=== PATIENT | male | born 1950 | race Asian ===

== ENCOUNTER 2024-06-30 19:26 | Inpatient (IN) | payer OTHER ==
[~2024-06-30] VITALS: Ht 165.1 cm; Wt 51.0 kg
[2024-06-30] MEDS ORDERED: 0.9% SODIUM CHLORIDE 10 ML SYRINGE IVP PRN (20:30)
[2024-06-30 20:46] LABS: HEMATOCRIT 23.8 % (41-53); HEMOGLOBIN 7.7 g/dL (13.5-17.5); MEAN CORPUSCULAR HEMOGLOBIN 31.3 pg (26.0-34.0); MEAN CORPUSCULAR HGB CONC 32.4 G/dL (31.0-37.0); MEAN CORPUSCULAR VOLUME 96 fL (80-100); PLATELET COUNT (AUTO) 248 K/uL (150-450); RED BLOOD CELL COUNT(AUTO) 2.47 MIL/uL (4.50-5.90); RED CELL DISTRIBUTION WIDTH 16.2 % (11.5-14.5); WHITE BLOOD COUNT (AUTO) 8.3 K/uL (4.5-11.0)
[2024-06-30 20:53] LABS: APPEARANCE,URINE CLEAR (CLEAR); BILIRUBIN,URINE NEGATIVE (NEGATIVE); COLOR,URINE LIGHT YELLOW (YELLOW); GLUCOSE, URINE (UA) 300-500 mg/dL (NEGATIVE); KETONES,URINE NEGATIVE (NEGATIVE); LEUKOCYTE ESTERASE ,URINE NEGATIVE (NEGATIVE); NITRATE,URINE NEGATIVE (NEGATIVE); OCCULT BLOOD,URINE MODERATE (NEGATIVE); PROTEIN,URINE >600,SEE CONFIRM mg/dL (NEGATIVE); SPECIFIC GRAVITIY, URINE 1.014 (1.003-1.030); UROBILINOGEN,URINE <=1.0 mg/dL (<=1.0)
[2024-06-30 20:58] LABS: PROTHROMBIN TIME 10.7 SEC (9.4-11.6)
[2024-06-30] MEDS ORDERED: FUROSEMIDE 40 MG/4 ML VIAL ONE (21:00)
[2024-06-30] MEDS: SODIUM CHLORIDE 0.9% 1,350 ML IV ONE (21:01)
[2024-06-30] MEDS: CefTRIAXone 1 GM/DEXTROSE 50 ML IV ONE (21:01)
[2024-06-30 21:05] LABS: ALANINE AMINOTRANSFERASE 29 U/L (12-78); ALBUMIN 3.7 g/dL (3.4-5.0); ALKALINE PHOSPHATASE 81 U/L (46-116); ANION GAP 15 mmol/L (8-16); ASPARTATE AMINOTRANSFERASE 21 U/L (15-37); BILIRUBIN,TOTAL 0.5 mg/dL (0.1-1.0); CALCIUM, TOTAL 8.9 mg/dL (8.8-10.5); CARBON DIOXIDE 18 mmol/L (22-29); CHLORIDE 102 mmol/L (98-107); CREATININE 9.81 mg/dL (0.60-1.30); GLOMERULAR FILTR. RATE CALC 5 mL/min (>60); GLUCOSE,RANDOM 229 mg/dL (70-110); LIPASE 132 U/L (16-77); SODIUM SERUM 135 mmol/L (136-145); TOTAL PROTEIN, SERUM 7.9 g/dL (6.4-8.2)
[2024-06-30 21:07] LABS: POTASSIUM 6.9 mmol/L (3.5-5.1); TROPONIN I-HIGH SENSITIVITY 117 ng/L (<76); UREA NITROGEN, BLOOD 112 mg/dL (7-18)
[2024-06-30 21:08] LABS: BACTERIA,URINE Few /HPF (None Seen); SQUAMOUS EPITHELIAL CELL,UR Few /LPF (None Seen); WBC,URINE 0-2 /HPF (0-5)
[2024-06-30 21:11] LABS: SULFOSALICYLIC ACID,URINE 1+ (Negative)
[2024-06-30 21:15] LABS: BAND NEUTROPHILS % (MANUAL) 2 % (0-5); BASOPHILS % (MANUAL) 1 % (0-2); LYMPHOCYTES % (MANUAL) 6 % (22-44); MONOCYTES % (MANUAL) 7 % (2-9); RBC MORPHOLOGY COMMENT ABNORMAL RBC MORPH; SEGMENTED NEUTROPHILS % 84 % (40-70); TOTAL CELLS COUNTED 100
[2024-06-30] MEDS ORDERED: ONDANSETRON HCL 4 MG/2 ML VIAL IVP PRN (21:30)
[2024-06-30] MEDS ORDERED: NITROGLYCERIN 0.4 MG SUBLINGUAL TABLET #25 SL PRN (21:30)
[2024-06-30] MEDS ORDERED: MIDAZOLAM HCL 2 MG/2 ML VIAL IVP PRN (21:45)
[2024-06-30 21:46] LABS: COVID AG,FIA SOURCE NASAL SWAB
[2024-06-30] MEDS: SODIUM BICARBONATE [ADULT] 8.4% 50 MEQ/50 ML SYRINGE IVP ONE (21:46)
[2024-06-30] MEDS: DEXTROSE 50%-WATER 25 GM/50 ML SYRINGE IVP ONE (21:49)
[2024-06-30] MEDS ORDERED: PROPOFOL 1000 MG/ISO-OSM 100 ML ONE (21:50)
[2024-06-30] MEDS: CALCIUM GLUCONATE 100 MG/ML 10 ML IVP ONE (21:50)
[2024-06-30] MEDS: INSULIN REGULAR, HUMAN 100 UNITS/ML IVP ONE (21:50)
[2024-06-30] MEDS: FUROSEMIDE 40 MG/4 ML VIAL IVP ONE ×2 (21:52→22:21)
[2024-06-30 22:02] LABS: SARS-COV2 (COVID) ANTIGEN,FIA Negative (Negative)
[2024-06-30 22:05] LABS: INFLUENZA TYPE B NEGATIVE FOR TYPE B (NEGATIVE)
[2024-06-30 22:06] VITALS: PULSE 101; RESP 20; O2SAT 100
[2024-06-30 22:06] LABS: INFLUENZA TYPE A POSITIVE FOR TYPE A (NEGATIVE)
[2024-06-30 22:07] LABS: ABG BASE EXCESS -12.6 mmol/L (-2.0-3.0); ABG CARBOXYHEMOGLOBIN 0.3 % (0.5-1.5); ABG HCO3 14.9 mmol/L (21.0-28.0); ABG METHEMOGLOBIN 0.4 % (0.0-1.5); ABG OXYGEN CONTENT 11.6 mL/dL (15.0-23.0); ABG OXYGEN SATURATION 99.6 % (94.0-98.0); ABG OXYHEMOGLOBIN 98.9 % (94.0-98.0); ABG PCO2 52 mmHg (32.0-48.0); ABG TOTAL HEMOGLOBIN 7.7 G/dL (13.5-17.5); SOURCE, BLOOD GAS ARTERIAL
[2024-06-30] MEDS: PROPOFOL 1000 MG/ISO-OSM 100 ML IV PRN (22:10)
[2024-06-30 22:16] LABS: ABG PH 7.125 (7.350-7.450)
[2024-06-30 22:17] LABS: ALLEN TEST, BLOOD GAS Positive; O2 DEVICE,BLOOD GAS VENTILATOR (ROOM AIR); PEEP,BG 5 cm H2O; PO2, ARTERIAL BG 312.5 mmHg (83.0-108.0); SITE, BLOOD GAS LFT RADIAL; SPONTANEOUS VT, BG 406 ml; VT, ABG 400 ml
[2024-06-30] MEDS: SODIUM ZIRCONIUM CYCLOSILICATE 5 GM POWDER PACKET PO ONE (22:21)
[2024-06-30] MEDS: CHLORHEXIDINE GLUCONATE 2% TOWELETTE [2'S/6'S] TP SCH (22:55)
[2024-06-30] MEDS: HEPARIN SODIUM,PORCINE 5,000 UNITS/ML VIAL SQ SCH (23:15)
[2024-06-30] MEDS: NITROGLYCERIN 2% (1 GM=INCH) OINTMENT PACKET TP SCH (23:54)
[2024-07-01] VITALS (22 sets, daily range): BP systolic 91–160; BP diastolic 42–72; PULSE 66–97; RESP 18–27; TEMP 95–100.7; O2SAT 90–100
[2024-07-01] MEDS: ETOMIDATE 2 MG/ML 10 ML VIAL IVP ONE
[2024-07-01] MEDS: ROCURONIUM BROMIDE 10 MG/ML 5 ML VIAL IVP ONE (00:01)
[2024-07-01 01:45] LABS: TROPONIN I-HIGH SENSITIVITY 146 ng/L (<76)
[2024-07-01 04:34] LABS: BASOPHILS % (AUTO) 0.4 % (0.0-2.0); EOSINOPHILS % (AUTO) 0 % (1.0-6.0); HEMATOCRIT 23.7 % (41-53); LYMPHOCYTES # (AUTO) 0.2 K/uL (1.0-4.8); LYMPHOCYTES % (AUTO) 3.2 % (22.0-44.0); MEAN CORPUSCULAR HEMOGLOBIN 31.4 pg (26.0-34.0); MEAN CORPUSCULAR HGB CONC 33.7 G/dL (31.0-37.0); MEAN CORPUSCULAR VOLUME 93 fL (80-100); MONOCYTES # (AUTO) 0.2 K/uL (0.1-1.0); MONOCYTES % (AUTO) 2.7 % (2.0-9.0); NEUTROPHILS # (AUTO) 5.9 K/uL (1.8-7.7); PLATELET COUNT (AUTO) 228 K/uL (150-450); RED BLOOD CELL COUNT(AUTO) 2.54 MIL/uL (4.50-5.90); RED CELL DISTRIBUTION WIDTH 15.6 % (11.5-14.5); WHITE BLOOD COUNT (AUTO) 6.3 K/uL (4.5-11.0)
[2024-07-01 04:45] LABS: NEUTROPHILS % (AUTO) 93.7 % (40.0-70.0)
[2024-07-01 04:51] LABS: CALCIUM, TOTAL 8.3 mg/dL (8.8-10.5); CREATININE 3.62 mg/dL (0.60-1.30); POTASSIUM 3.6 mmol/L (3.5-5.1)
[2024-07-01 05:39] LABS: ABG A-A DIFF O2 386.7 mmHg (10-20.0); ABG BASE EXCESS -0.7 mmol/L (-2.0-3.0); ABG CARBOXYHEMOGLOBIN 0.3 % (0.5-1.5); ABG HCO3 23.9 mmol/L (21.0-28.0); ABG METHEMOGLOBIN 1.2 % (0.0-1.5); ABG OXYGEN CONTENT 12.5 mL/dL (15.0-23.0); ABG OXYGEN SATURATION 95.4 % (94.0-98.0); ABG PCO2 40 mmHg (32.0-48.0); ABG PH 7.399 (7.350-7.450); ABG TOTAL HEMOGLOBIN 9.4 G/dL (13.5-17.5); ALLEN TEST, BLOOD GAS Positive; O2 DEVICE,BLOOD GAS VENTILATOR (ROOM AIR); PEEP,BG 5 cm H2O; SITE, BLOOD GAS LFT RADIAL; SOURCE, BLOOD GAS ARTERIAL; TEMPERATURE, FAHRENHEIT, BG 97.2 FAHREN (96.0-98.6); VT, ABG 400 ml
[2024-07-01 05:40] LABS: SPONTANEOUS VT, BG 483 ml
[2024-07-01] MEDS: FentaNYL CIT 1000MCG/0.9% NACL 100 ML IV PRN (05:43)
[2024-07-01] MEDS: PANTOPRAZOLE SODIUM 40 MG/VIAL IVP SCH (08:06)
[2024-07-01] MEDS: DEXTROSE 50%-WATER 25 GM/50 ML SYRINGE IVP PRN (09:11)
[2024-07-01 10:27] LABS: TROPONIN I-HIGH SENSITIVITY 230 ng/L (<76)
[2024-07-01] MEDS: ACETAMINOPHEN 325 MG TABLET PO PRN (12:05)
[2024-07-01 12:25] LABS: GLUCOMETER DEV NAME(LOC) ICUN.5; GLUCOSE,POINT OF CARE 98 MG/DL (70-110)
[2024-07-01 12:35] LABS: GLUCOMETER DEV NAME(LOC) ERT.6; GLUCOSE,POINT OF CARE 51 MG/DL (70-110)
[2024-07-01] MEDS: PROPOFOL 1000 MG/ISO-OSM 100 ML IV PRN (16:05)
[2024-07-01 18:26] LABS: GLUCOMETER DEV NAME(LOC) ICUN.5; GLUCOSE,POINT OF CARE 61 MG/DL (70-110)
[2024-07-01 18:26] LABS: GLUCOMETER DEV NAME(LOC) ICUN.5; GLUCOSE,POINT OF CARE 147 MG/DL (70-110)
[2024-07-01] MEDS: FOLIC ACID/VIT B COMPLEX AND C TABLET PO SCH (18:39)
[2024-07-01] MEDS: CefTRIAXone 1 GM/DEXTROSE 50 ML IV SCH (21:31)
[2024-07-01] MEDS ORDERED: SODIUM CHLORIDE 0.9% 250 ML IV ONE (21:35)
[2024-07-01 22:26] LABS: GLUCOMETER DEV NAME(LOC) ICU.S6; GLUCOSE,POINT OF CARE 46 MG/DL (70-110)
[2024-07-02] VITALS (29 sets, daily range): BP systolic 100–168; BP diastolic 43–98; PULSE 16–119; RESP 16–35; TEMP 97.8–102; O2SAT 26–100
[2024-07-02] MEDS: HydrALAZINE HCL 20 MG/ML VIAL IVP PRN (05:28)
[2024-07-02 06:24] LABS: CALCIUM, TOTAL 8.4 mg/dL (8.8-10.5); CREATININE 7.48 mg/dL (0.60-1.30); PHOSPHORUS 6.9 mg/dL (2.5-4.9); POTASSIUM 5.3 mmol/L (3.5-5.1); THYROID STIMULATING HORMONE 1.82 uIU/mL (0.36-3.74)
[2024-07-02 06:44] LABS: TROPONIN I-HIGH SENSITIVITY 261 ng/L (<76)
[2024-07-02 07:37] LABS: BASOPHILS % (AUTO) 0.7 % (0.0-2.0); EOSINOPHILS % (AUTO) 0.1 % (1.0-6.0); LYMPHOCYTES # (AUTO) 0.3 K/uL (1.0-4.8); LYMPHOCYTES % (AUTO) 3.9 % (22.0-44.0); MEAN CORPUSCULAR HEMOGLOBIN 32.3 pg (26.0-34.0); MEAN CORPUSCULAR HGB CONC 33.8 G/dL (31.0-37.0); MEAN CORPUSCULAR VOLUME 95 fL (80-100); MONOCYTES # (AUTO) 0.3 K/uL (0.1-1.0); MONOCYTES % (AUTO) 3.8 % (2.0-9.0); NEUTROPHILS # (AUTO) 7.5 K/uL (1.8-7.7); PLATELET COUNT (AUTO) 168 K/uL (150-450); RED BLOOD CELL COUNT(AUTO) 2.05 MIL/uL (4.50-5.90); WHITE BLOOD COUNT (AUTO) 8.2 K/uL (4.5-11.0)
[2024-07-02 08:02] LABS: HEMOGLOBIN 6.6 g/dL (13.5-17.5)
[2024-07-02 08:03] LABS: HEMATOCRIT 19.5 % (41-53); NEUTROPHILS % (AUTO) 91.5 % (40.0-70.0)
[2024-07-02] MEDS: EPOETIN ALFA 10,000 UNITS/ML 2 ML VIAL SQ SCH (08:18)
[2024-07-02] MEDS ORDERED: SODIUM CHLORIDE 0.9% 0 ML ONE (10:24)
[2024-07-02] MEDS ORDERED: DEXTROSE 50%-WATER 25 GM/50 ML SYRINGE IVP PRN (10:30)
[2024-07-02] MEDS ORDERED: CALCIUM GLUCONATE 0.465 MEQ/ML 10 ML VIAL IVP ONE (10:30)
[2024-07-02 11:10] LABS: GLUCOMETER DEV NAME(LOC) ICUN.5; GLUCOSE,POINT OF CARE 133 MG/DL (70-110)
[2024-07-02 11:10] LABS: GLUCOMETER DEV NAME(LOC) ICU.S6; GLUCOSE,POINT OF CARE 61 MG/DL (70-110)
[2024-07-02] MEDS: OSELTAMIVIR PHOSPHATE 30 MG CAPSULE PO ONE (12:50)
[2024-07-02] MEDS: NOREPINEPHRINE 8 MG/0.9 % NACL 250 ML IV PRN (15:34)
[2024-07-02 16:37] LABS: HEMATOCRIT 22.7 % (41-53); HEMOGLOBIN 7.7 g/dL (13.5-17.5); MEAN CORPUSCULAR HEMOGLOBIN 30.6 pg (26.0-34.0); MEAN CORPUSCULAR HGB CONC 33.9 G/dL (31.0-37.0); MEAN CORPUSCULAR VOLUME 90 fL (80-100); PLATELET COUNT (AUTO) 167 K/uL (150-450); RED BLOOD CELL COUNT(AUTO) 2.51 MIL/uL (4.50-5.90); RED CELL DISTRIBUTION WIDTH 18.6 % (11.5-14.5); WHITE BLOOD COUNT (AUTO) 9.8 K/uL (4.5-11.0)
[2024-07-02 17:12] LABS: BAND NEUTROPHILS % (MANUAL) 8 % (0-5); LYMPHOCYTES % (MANUAL) 4 % (22-44); MONOCYTES % (MANUAL) 3 % (2-9); RBC MORPHOLOGY COMMENT NORMAL RBC MORPH; SEGMENTED NEUTROPHILS % 85 % (40-70); TOTAL CELLS COUNTED 100
[2024-07-02 17:21] LABS: GLUCOMETER DEV NAME(LOC) ICU.S6; GLUCOSE,POINT OF CARE 76 MG/DL (70-110)
[2024-07-02 17:21] LABS: GLUCOMETER DEV NAME(LOC) ICUN.5; GLUCOSE,POINT OF CARE 84 MG/DL (70-110)
[2024-07-02 17:21] LABS: GLUCOMETER DEV NAME(LOC) ICU.S6; GLUCOSE,POINT OF CARE 73 MG/DL (70-110)
[2024-07-02 21:16] LABS: GLUCOMETER DEV NAME(LOC) ICUN.5; GLUCOSE,POINT OF CARE 73 MG/DL (70-110)
[2024-07-02 22:20] LABS: GLUCOMETER DEV NAME(LOC) ICU.S6; GLUCOSE,POINT OF CARE 66 MG/DL (70-110)
[2024-07-03] VITALS (14 sets, daily range): BP systolic 94–187; BP diastolic 42–104; PULSE 77–118; RESP 15–29; TEMP 97.2–101.8; O2SAT 97–100
[2024-07-03 05:26] LABS: HEMATOCRIT 21.4 % (41-53); HEMOGLOBIN 7.4 g/dL (13.5-17.5); MEAN CORPUSCULAR HEMOGLOBIN 31.3 pg (26.0-34.0); MEAN CORPUSCULAR HGB CONC 34.7 G/dL (31.0-37.0); MEAN CORPUSCULAR VOLUME 90 fL (80-100); PLATELET COUNT (AUTO) 147 K/uL (150-450); RED BLOOD CELL COUNT(AUTO) 2.37 MIL/uL (4.50-5.90); WHITE BLOOD COUNT (AUTO) 6.2 K/uL (4.5-11.0)
[2024-07-03 05:39] LABS: CALCIUM, TOTAL 8.8 mg/dL (8.8-10.5); CREATININE 4.97 mg/dL (0.60-1.30); PHOSPHORUS 5.7 mg/dL (2.5-4.9); POTASSIUM 4.1 mmol/L (3.5-5.1)
[2024-07-03 05:50] LABS: TROPONIN I-HIGH SENSITIVITY 333 ng/L (<76)
[2024-07-03 06:02] LABS: BAND NEUTROPHILS % (MANUAL) 6 % (0-5); LYMPHOCYTES % (MANUAL) 8 % (22-44); MONOCYTES % (MANUAL) 6 % (2-9); SEGMENTED NEUTROPHILS % 80 % (40-70); TOTAL CELLS COUNTED 100
[2024-07-03] MEDS: DOCUSATE SODIUM 100 MG/10 ML LIQUID UDCUP NG PRN (08:03)
[2024-07-03] MEDS: POLYETHYLENE GLYCOL 3350 17 GM PACKET NG SCH (08:03)
[2024-07-03] MEDS: SENNOSIDES 8.8 MG/5 ML SYRUP UDCUP NG SCH (08:06)
[2024-07-03 09:06] LABS: PARATHYROID HORMONE INTACT 286 pg/mL (15-65)
[2024-07-03] MEDS ORDERED: VANCOMYCIN 1GM/WATER(PEG/NADA) 200 ML IV PRN (12:30)
[2024-07-03] MEDS: VANCOMYCIN 1GM/WATER(PEG/NADA) 200 ML IV ONE (12:31)
[2024-07-03 12:56] LABS: GLUCOMETER DEV NAME(LOC) ICUN.5; GLUCOSE,POINT OF CARE 80 MG/DL (70-110)
[2024-07-03 12:56] LABS: GLUCOMETER DEV NAME(LOC) ICU.S6; GLUCOSE,POINT OF CARE 132 MG/DL (70-110)
[2024-07-03 12:56] LABS: GLUCOMETER DEV NAME(LOC) ICU.S6; GLUCOSE,POINT OF CARE 61 MG/DL (70-110)
[2024-07-03] MEDS: PIPERACILLIN SODIUM/TAZOBACTAM 2.25 GM in DEXTROSE 5%-WATER 50 ML IV SCH (15:40)
[2024-07-03 20:20] LABS: GLUCOMETER DEV NAME(LOC) ICU.S6; GLUCOSE,POINT OF CARE 74 MG/DL (70-110)
[2024-07-04] VITALS (21 sets, daily range): BP systolic 70–154; BP diastolic 38–81; PULSE 50–117; RESP 20–36; TEMP 93.4–110; O2SAT 86–100
[2024-07-04] MEDS: DEXMEDETOMIDINE HCL 400 MCG in SODIUM CHLORIDE 0.9% 96 ML IV PRN (00:44)
[2024-07-04] MEDS ORDERED: SODIUM CHLORIDE 0.9% 250 ML IV ONE ×2 (00:54→02:20)
[2024-07-04 04:16] LABS: GLUCOMETER DEV NAME(LOC) ICUN.5; GLUCOSE,POINT OF CARE 72 MG/DL (70-110)
[2024-07-04 04:16] LABS: GLUCOMETER DEV NAME(LOC) ICUN.5; GLUCOSE,POINT OF CARE 78 MG/DL (70-110)
[2024-07-04 06:36] LABS: GLUCOMETER DEV NAME(LOC) ICUN.5; GLUCOSE,POINT OF CARE 72 MG/DL (70-110)
[2024-07-04 07:48] LABS: HEMATOCRIT 21.4 % (41-53); MEAN CORPUSCULAR HEMOGLOBIN 30.2 pg (26.0-34.0); MEAN CORPUSCULAR HGB CONC 32.6 G/dL (31.0-37.0); MEAN CORPUSCULAR VOLUME 93 fL (80-100); PLATELET COUNT (AUTO) 130 K/uL (150-450); RED BLOOD CELL COUNT(AUTO) 2.31 MIL/uL (4.50-5.90); RED CELL DISTRIBUTION WIDTH 19.3 % (11.5-14.5); WHITE BLOOD COUNT (AUTO) 4.1 K/uL (4.5-11.0)
[2024-07-04 07:58] LABS: BAND NEUTROPHILS % (MANUAL) 7 % (0-5); LYMPHOCYTES % (MANUAL) 7 % (22-44); MONOCYTES % (MANUAL) 6 % (2-9); SEGMENTED NEUTROPHILS % 80 % (40-70); TOTAL CELLS COUNTED 100
[2024-07-04 07:59] LABS: RBC MORPHOLOGY COMMENT ABNORMAL R
[2024-07-04 08:26] LABS: GLUCOMETER DEV NAME(LOC) ICU.S6; GLUCOSE,POINT OF CARE 86 MG/DL (70-110)
[2024-07-04 08:27] LABS: CALCIUM, TOTAL 8.9 mg/dL (8.8-10.5); CREATININE 6.26 mg/dL (0.60-1.30); POTASSIUM 4.8 mmol/L (3.5-5.1); VANCOMYCIN,RANDOM 15.4 mcg/mL (25.0-50.0)
[2024-07-04 08:42] LABS: TROPONIN I-HIGH SENSITIVITY 196 ng/L (<76)
[2024-07-04] MEDS: VANCOMYCIN 1GM/WATER(PEG/NADA) 200 ML IV ONE (09:45)
[2024-07-04] MEDS ORDERED: SODIUM CHLORIDE 0.9% 1,000 ML ONE (10:27)
[2024-07-04 13:56] LABS: GLUCOMETER DEV NAME(LOC) ICU.S6; GLUCOSE,POINT OF CARE 136 MG/DL (70-110)
[2024-07-04 15:06] LABS: ABG BASE EXCESS -6.3 mmol/L (-2.0-3.0); ABG CARBOXYHEMOGLOBIN 1.1 % (0.5-1.5); ABG HCO3 19.7 mmol/L (21.0-28.0); ABG METHEMOGLOBIN 0.3 % (0.0-1.5); ABG OXYGEN CONTENT 9.8 mL/dL (15.0-23.0); ABG OXYGEN SATURATION 96.8 % (94.0-98.0); ABG OXYHEMOGLOBIN 95.4 % (94.0-98.0); ABG PCO2 34 mmHg (32.0-48.0); ABG PH 7.365 (7.350-7.450); ABG TOTAL HEMOGLOBIN 7.2 G/dL (13.5-17.5); PO2, ARTERIAL BG 92.6 mmHg (83.0-108.0); SOURCE, BLOOD GAS ARTERIAL; TEMPERATURE, FAHRENHEIT, BG 98.6 FAHREN (96.0-98.6)
[2024-07-04 15:07] LABS: ABG A-A DIFF O2 117.2 mmHg (10-20.0); ALLEN TEST, BLOOD GAS Positive; CPAP, BG 0 cm H2O; O2 DEVICE,BLOOD GAS VENTILATOR (ROOM AIR); PRESSURE SUPPORT, BG 8 cm H2O; SITE, BLOOD GAS LFT RADIAL; SPONTANEOUS VT, BG 480 ml; VENT MODE, BG CPAP (ROOM AIR)
[2024-07-04 19:36] LABS: GLUCOMETER DEV NAME(LOC) ICU.S6; GLUCOSE,POINT OF CARE 123 MG/DL (70-110)
[2024-07-04 21:41] LABS: BASOPHILS % (AUTO) 1.6 % (0.0-2.0); EOSINOPHILS % (AUTO) 0.8 % (1.0-6.0); LYMPHOCYTES # (AUTO) 0.3 K/uL (1.0-4.8); MEAN CORPUSCULAR HGB CONC 33.1 G/dL (31.0-37.0); MEAN CORPUSCULAR VOLUME 91 fL (80-100); MONOCYTES # (AUTO) 0.4 K/uL (0.1-1.0); MONOCYTES % (AUTO) 8.5 % (2.0-9.0); NEUTROPHILS # (AUTO) 4.4 K/uL (1.8-7.7); NEUTROPHILS % (AUTO) 84.1 % (40.0-70.0); PLATELET COUNT (AUTO) 138 K/uL (150-450); RED BLOOD CELL COUNT(AUTO) 2.19 MIL/uL (4.50-5.90); RED CELL DISTRIBUTION WIDTH 19.2 % (11.5-14.5); WHITE BLOOD COUNT (AUTO) 5.2 K/uL (4.5-11.0)
[2024-07-04 21:48] LABS: HEMOGLOBIN 6.6 g/dL (13.5-17.5)
[2024-07-04 21:49] LABS: HEMATOCRIT 19.8 % (41-53)
[2024-07-04 22:10] LABS: RBC MORPHOLOGY COMMENT ABNORMAL RBC MORPH
[2024-07-04 22:22] LABS: ABG BASE EXCESS 3.7 mmol/L (-2.0-3.0); ABG CARBOXYHEMOGLOBIN 0.2 % (0.5-1.5); ABG HCO3 27.7 mmol/L (21.0-28.0); ABG OXYGEN CONTENT 12.8 mL/dL (15.0-23.0); ABG OXYGEN SATURATION 97.4 % (94.0-98.0); ABG OXYHEMOGLOBIN 96.2 % (94.0-98.0); ABG PCO2 38 mmHg (32.0-48.0); ABG PH 7.476 (7.350-7.450); ABG TOTAL HEMOGLOBIN 9.4 G/dL (13.5-17.5); ALLEN TEST, BLOOD GAS Positive; PO2, ARTERIAL BG 91.4 mmHg (83.0-108.0); SITE, BLOOD GAS LFT RADIAL; SOURCE, BLOOD GAS ARTERIAL; TEMPERATURE, FAHRENHEIT, BG 99.3 FAHREN (96.0-98.6)
[2024-07-04 22:23] LABS: O2 DEVICE,BLOOD GAS SIMPLE MASK (ROOM AIR)
[2024-07-04] MEDS ORDERED: SODIUM CHLORIDE 0.9% 500 ML IV ONE (22:27)
[2024-07-04] MEDS: PANTOPRAZOLE SODIUM 40 MG/VIAL IVP ONE (22:54)
[2024-07-04] MEDS: INSULIN LISPRO 100 UNITS/ML SQ PRN (23:03)
[2024-07-05] VITALS (9 sets, daily range): BP systolic 109–167; BP diastolic 45–85; PULSE 98–107; RESP 22–31; TEMP 98.5–100; O2SAT 91–96
[2024-07-05] MEDS: PANTOPRAZOLE SODIUM 80 MG in SODIUM CHLORIDE 0.9% 100 ML IV SCH (00:48)
[2024-07-05 05:47] LABS: BASOPHILS % (AUTO) 0.9 % (0.0-2.0); CALCIUM, TOTAL 8.5 mg/dL (8.8-10.5); CREATININE 4.25 mg/dL (0.60-1.30); EOSINOPHILS % (AUTO) 0.2 % (1.0-6.0); HEMOGLOBIN 7.6 g/dL (13.5-17.5); LYMPHOCYTES # (AUTO) 0.4 K/uL (1.0-4.8); LYMPHOCYTES % (AUTO) 7.9 % (22.0-44.0); MEAN CORPUSCULAR HEMOGLOBIN 30.4 pg (26.0-34.0); MEAN CORPUSCULAR HGB CONC 34.5 G/dL (31.0-37.0); MEAN CORPUSCULAR VOLUME 88 fL (80-100); MONOCYTES # (AUTO) 0.5 K/uL (0.1-1.0); MONOCYTES % (AUTO) 9.9 % (2.0-9.0); NEUTROPHILS # (AUTO) 3.9 K/uL (1.8-7.7); NEUTROPHILS % (AUTO) 81.1 % (40.0-70.0); PHOSPHORUS 4.9 mg/dL (2.5-4.9); PLATELET COUNT (AUTO) 126 K/uL (150-450); POTASSIUM 3.8 mmol/L (3.5-5.1); RED CELL DISTRIBUTION WIDTH 17.5 % (11.5-14.5); WHITE BLOOD COUNT (AUTO) 4.8 K/uL (4.5-11.0)
[2024-07-05 06:35] LABS: GLUCOMETER DEV NAME(LOC) ICU.S6; GLUCOSE,POINT OF CARE 167 MG/DL (70-110)
[2024-07-05 06:35] LABS: GLUCOMETER DEV NAME(LOC) ICU.S6; GLUCOSE,POINT OF CARE 144 MG/DL (70-110)
[2024-07-05] MEDS ORDERED: SODIUM BICARBONATE [ADULT] 8.4% 50 MEQ/50 ML SYRINGE IVP ONE (10:00)
[2024-07-05 14:19] LABS: HEMATOCRIT 21.3 % (41-53); HEMOGLOBIN 7.1 g/dL (13.5-17.5)
[2024-07-05 14:21] LABS: GLUCOMETER DEV NAME(LOC) ICUN.5; GLUCOSE,POINT OF CARE 166 MG/DL (70-110)
[2024-07-05 20:26] LABS: GLUCOMETER DEV NAME(LOC) ICU.S6; GLUCOSE,POINT OF CARE 188 MG/DL (70-110)
[2024-07-06] MEDS ORDERED: HEPARIN SODIUM,PORCINE 5,000 UNITS/ML VIAL SQ SCH
== END 2024-07-05 19:00 | disposition short-term general hospital (02) | DRG 871 ==
LOC: EMS 19:26 → EDH 21:21 → ICU 07-01 10:19
PROVIDERS: ADMIT Internal Medicine; ATTEND Internal Medicine
PROC: 5A1945Z Respiratory Ventilation, 24-96 Consecutive Hours (ICD-10-PCS; principal; 2024-06-30)
PROC: 0BH17EZ Insertion of Endotracheal Airway into Trachea, Via Natural or Artificial Opening (ICD-10-PCS; 2024-06-30)
PROC: 5A1D70Z Performance of Urinary Filtration, Intermittent, Less than 6 Hours Per Day (ICD-10-PCS; 2024-07-01)
PROC: 30233N1 Transfusion of Nonautologous Red Blood Cells into Peripheral Vein, Percutaneous Approach (ICD-10-PCS; 2024-07-02)
PROC: 5A1D70Z Performance of Urinary Filtration, Intermittent, Less than 6 Hours Per Day (ICD-10-PCS; 2024-07-02)
PROC: 5A1D70Z Performance of Urinary Filtration, Intermittent, Less than 6 Hours Per Day (ICD-10-PCS; 2024-07-04)
DX: A41.9 Sepsis, unspecified organism (principal); G93.41 Metabolic encephalopathy; J96.01 Acute respiratory failure with hypoxia; I21.A1 Myocardial infarction type 2; N18.6 End stage renal disease; J69.0 Pneumonitis due to inhalation of food and vomit; J10.08 Influenza due to other identified influenza virus with other specified pneumonia; I50.33 Acute on chronic diastolic (congestive) heart failure; K92.1 Melena; I13.2 Hypertensive heart and chronic kidney disease with heart failure and with stage 5 chronic kidney disease, or end stage renal disease; D61.818 Other pancytopenia; N25.81 Secondary hyperparathyroidism of renal origin; Z99.11 Dependence on respirator [ventilator] status; J44.9 Chronic obstructive pulmonary disease, unspecified; Z20.822 Contact with and (suspected) exposure to COVID-19; E11.22 Type 2 diabetes mellitus with diabetic chronic kidney disease; E87.5 Hyperkalemia; E78.00 Pure hypercholesterolemia, unspecified; I44.0 Atrioventricular block, first degree; D63.8 Anemia in other chronic diseases classified elsewhere; E11.51 Type 2 diabetes mellitus with diabetic peripheral angiopathy without gangrene; D50.9 Iron deficiency anemia, unspecified; R68.0 Hypothermia, not associated with low environmental temperature; I25.10 Atherosclerotic heart disease of native coronary artery without angina pectoris; Z99.2 Dependence on renal dialysis; Z87.891 Personal history of nicotine dependence; Z79.899 Other long term (current) drug therapy; Z88.8 Allergy status to other drugs, medicaments and biological substances; Z79.4 Long term (current) use of insulin; Z91.199 Patient's noncompliance with other medical treatment and regimen due to unspecified reason
CPT/HCPCS: 36600; 70450; 71045; 71250; 74018; 74176; 80048; 80053; 80202; 81001; 81002; 82271; 82805; 82962; 83540; 83550; 83605; 83690; 83735; 83880; 83970; 84100; 84145; 84443; 84484; 85014; 85018; 85025; 85045; 85610; 86850; 86900; 86901; 86923; 87040; 87081; 87340; 87481; 87804; 90935; 92610; 93005; 93306; 94002; 94003; 99285; C9113; J0360; J0610; J0696; J0885; J1644; J1815; J1940; J2543; J2704; J3010; J3490; J7030; J7040; J7050; J7060; P9016; 36415-L1; 36415-TC; J2471

== ENCOUNTER 2024-08-14 21:40 | Emergency (ER) | payer OTHER ==
[~2024-08-14] VITALS: Ht 165.1 cm; Wt 50.0 kg
[2024-08-14 21:43] VITALS: TEMP 96.6
[2024-08-14 23:27] VITALS: BP 142/61; PULSE 91; RESP 19; O2SAT 99
[2024-08-14 23:47] LABS: CALCIUM, TOTAL 8.8 mg/dL (8.8-10.5); CREATININE 3.39 mg/dL (0.60-1.30); POTASSIUM 4.6 mmol/L (3.5-5.1)
[2024-08-14 23:49] LABS: BASOPHILS % (AUTO) 1.4 % (0.0-2.0); HEMATOCRIT 30.9 % (41-53); HEMOGLOBIN 10.4 g/dL (13.5-17.5); LYMPHOCYTES % (AUTO) 10.9 % (22.0-44.0); MEAN CORPUSCULAR HEMOGLOBIN 31.6 pg (26.0-34.0); MEAN CORPUSCULAR HGB CONC 33.7 G/dL (31.0-37.0); MEAN CORPUSCULAR VOLUME 94 fL (80-100); MONOCYTES # (AUTO) 0.9 K/uL (0.1-1.0); MONOCYTES % (AUTO) 10.3 % (2.0-9.0); NEUTROPHILS # (AUTO) 6.4 K/uL (1.8-7.7); NEUTROPHILS % (AUTO) 72.4 % (40.0-70.0); PLATELET COUNT (AUTO) 233 K/uL (150-450); RED CELL DISTRIBUTION WIDTH 20.2 % (11.5-14.5); WHITE BLOOD COUNT (AUTO) 8.8 K/uL (4.5-11.0)
[2024-08-14 23:55] LABS: TROPONIN I-HIGH SENSITIVITY 15 ng/L (<76)
== END 2024-08-15 01:12 | disposition home or self-care (01) ==
LOC: EMS 21:40
DX: R55 Syncope and collapse (principal); R23.2 Flushing; D64.9 Anemia, unspecified; I12.0 Hypertensive chronic kidney disease with stage 5 chronic kidney disease or end stage renal disease; E11.22 Type 2 diabetes mellitus with diabetic chronic kidney disease; N18.6 End stage renal disease; E78.00 Pure hypercholesterolemia, unspecified; Z88.8 Allergy status to other drugs, medicaments and biological substances; Z99.2 Dependence on renal dialysis
CPT/HCPCS: 71045; 80048; 83880; 84484; 85025; 93005; 99285; 36415-L1; 36415-TC